=== PATIENT | male | born 1950 | race African-American/Black ===

== ENCOUNTER 2023-05-09 15:05 | Emergency (ER) | payer OTHER ==
[~2023-05-09] VITALS: Ht 182.9 cm; Wt 97.0 kg
[2023-05-09 15:08] VITALS: O2SAT 98
[2023-05-09 16:58] LABS: EOSINOPHILS % 1.1 % (0.0-5.0); HEMATOCRIT. 36.1 % (42.0-52.0); MEAN CORPUSCULAR HEMOGLOBIN 31.5 pg (28.0-32.0); MEAN CORPUSCULAR HGB CONC 35.9 g/dL (31.0-37.0); MEAN CORPUSCULAR VOLUME 87.8 fL (80.0-94.0); MEAN PLATELET VOLUME 7.2 fl (7.4-10.4); MONOCYTES % 9.8 % (2.0-8.0); NEUTROPHILS % 67.1 % (40.0-76.0); PLATELET 243 x1000/uL (130-400); RED BLOOD CELL COUNT 4.12 mill/uL (4.7-6.1); RED CELL DISTRIBUTION WIDTH 14.8 % (11.6-14.6); WHITE BLOOD COUNT 6.6 x1000/uL (4.5-11.0)
[2023-05-09 17:11] LABS: ALANINE AMINOTRANSFERASE 28 IU/L (10-49); ALBUMIN 4.2 g/dL (3.2-4.8); ASPARTATE AMINOTRANSFERASE 22 IU/L (<34); BILIRUBIN TOTAL 0.8 mg/dL (0.1-1.0); CALCIUM 9.6 mg/dL (8.7-10.4); CARBON DIOXIDE 32 mEq/L (21-32); CHLORIDE 99 mEq/L (98-107); CREATININE 0.9 mg/dL (0.6-1.3); GLUCOSE 105 mg/dL (70-105); POTASSIUM 4.4 mEq/L (3.5-5.1); PROTEIN TOTAL 6.7 g/dL (6.0-8.3); SODIUM 136 mEq/L (136-145); UREA NITROGEN BLOOD 16 mg/dL (9-23)
[2023-05-09] MEDS: CEFTRIAXONE 1GM/50ML 50 ML IV ONE (17:22)
[2023-05-09] MEDS: SODIUM CHLORIDE 0.9% 1000ML BAG (SEPSIS BOLUS) IV ONE (17:22)
[2023-05-09 17:36] LABS: CLARITY URINE TURBID (CLEAR); COLOR URINE DARK YELLOW (YELLOW); GLUCOSE URINE NEGATIVE (NEGATIVE); KETONES URINE NEGATIVE (NEGATIVE); LEUKOCYTE ESTERASE URINE 2+ (NEGATIVE); NITRITE URINE NEGATIVE (NEGATIVE); OCCULT BLOOD URINE 3+ (NEGATIVE); PH URINE 8.5 (4.5-8.0); PROTEIN URINE 3+ (NEGATIVE); SPECIFIC GRAVITY URINE 1.023 (1.005-1.030)
[2023-05-09 18:21] LABS: RBC URINE TNTC /hpf (0-2); SQUAMOUS EPITHELIAL CELL URINE FEW /lpf (RARE/1+); WBC URINE TNTC /hpf (0-2)
[2023-05-09 18:22] LABS: BACTERIA URINE 1+
[2023-05-09] MEDS ORDERED: NITR-87 MT (18:38)
[2023-05-09 20:00] VITALS: BP 147/73; PULSE 75; RESP 18; TEMP 97.9
== END 2023-05-09 20:00 | disposition home or self-care (01) ==
LOC: ER 15:05 → CANBEDREQ 18:58 → ER 20:00
DX: N39.0 Urinary tract infection, site not specified (principal); E11.9 Type 2 diabetes mellitus without complications; I10 Essential (primary) hypertension; Z88.0 Allergy status to penicillin
CPT/HCPCS: 99285; 96374; 71045; 80053; 81003; 83605; 85025; 85610; 87040; 87086; 36415; 84145; 93005; J0696; J7030